=== PATIENT | female | born 1955 | race Caucasian/White ===

== ENCOUNTER 2017-03-27 08:22 | Emergency (ER) | payer OTHER ==
[2017-03-27 09:33] LABS: HCT 44.4 % (37.0-47.0); HGB 14.7 g/dl (12.5-16.0); MCH 29.1 pg (25.0-31.0); MCHC 33.1 g/dL (32.0-36.0); MCV 87.7 fL (78.0-100.0); MPV 10.9 fL (6.0-9.5); RBC 5.06 M/uL (4.20-5.40); RDW 14.7 % (11.5-14.0); WBC 5.5 K/uL (4.0-10.5)
[2017-03-27 09:43] LABS: CREATININE 0.5 mg/dL (0.5-1.0); POTASSIUM 3.9 mmol/L (3.5-5.1)
== END 2017-03-27 12:30 | disposition home or self-care (01) ==
LOC: FER 08:22
PROVIDERS: Internal Medicine
DX: K22.2 Esophageal obstruction (principal); Z88.5 Allergy status to narcotic agent
CPT/HCPCS: 36415; 71020; 74220; 80048; J2060; J2405